=== PATIENT | male | born 1990 | race African-American/Black ===

== ENCOUNTER 2017-05-29 08:49 | Emergency (ER) | payer SELFPAY ==
--- NOTE | 2017-05-29 09:35 | PDOC ---
History of Present Illness - General Chief Complaint: Sore Throat Stated Complaint: FLU LIKE SYMPTOMS Time Seen by Provider: 05/29/17 09:33 History Source: Patient Exam Limitations: No Limitations - History of Present Illness Initial Comments: CHIEF COMPLAINT: 27 y/o male with no significant PMH c/o body aches, cough, fever, sore throat and runny nose x 3 days. 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 He states he has been taking dayquill and nyquill for the symptoms with little relief. He does not know if he's been exposed to the flu. He did not have the flu shot this year. Vital signs on arrival are temp of 99.7. REVIEW OF SYSTEMS: GENERAL/CONSTITUTIONAL: + fever/chills. +body aches. No weakness. No weight change. HEAD, EYES, EARS, NOSE AND THROAT: No change in vision. No ear pain or discharge. +sore throat and runny nose. CARDIOVASCULAR: No chest pain or shortness of breath. RESPIRATORY: +dry cough. No wheezing or hemoptysis. GASTROINTESTINAL: No abd pain, nausea, vomiting, diarrhea. GENITOURINARY: No dysuria, frequency, or change in urination. MUSCULOSKELETAL: No joint or muscle swelling or pain. No neck or back pain. SKIN: No rash or easy bruising. NEUROLOGIC: No headache, vertigo, loss of consciousness, or loss of sensation. PHYSICAL EXAM: GENERAL: The patient is awake, alert, and fully oriented, in no acute distress. He is non toxic appearing. HEAD: Normal with no signs of trauma. ENT: Pupils equal, round and reactive to light, extraocular movements intact, sclera anicteric, conjunctiva clear. Nasal congestion. Mild posterior pharyngeal erythema without tonsilar edema or exudate. Uvula midline. No cervical lymphadenopathy LUNGS: Clear to auscultation bilaterally. Normal excursion. No respiratory distress or use of accessory muscles. CV: RRR, S1/S2, no MRG. Cap refill < 2 sec. ABDOMEN: Soft, non-distended, non-tender even to deep palpation, no hepatomegaly or splenomegaly, no masses. EXTREMITIES: Normal range of motion, no edema. NEUROLOGICAL: Normal speech, normal gait. CN II-XII grossly intact. SKIN: Warm, dry, normal turgor, no rashes or lesions noted. Past History - Past Medical History Allergies/Adverse Reactions: Allergies Allergy/AdvReac Type Severity Reaction Status Date / Time No Known Allergies Allergy Verified 05/29/17 09:08 Home Medications: Ambulatory Orders NK [No Known Home Medication] 05/23/13 Anemia: No Asthma: No Cancer: No Cardiac Disorders: No CVA: No COPD: No CHF: No Dementia: No Diabetes: No GI Disorders: Yes (BILATERAL INGUINAL HERNIAS) Disorders: No HTN: No Hypercholesterolemia: No Liver Disease: No Seizures: No Thyroid Disease: No - Surgical History Abdominal Surgery: No Appendectomy: No Cardiac Surgery: No Cholecystectomy: No Lung Surgery: No Neurologic Surgery: No Orthopedic Surgery: No - Suicide/Smoking/Psychosocial Hx Smoking Status: No Smoking History: Never smoked Have you smoked in the past 12 months: No Number of Cigarettes Smoked Daily: 0 Information on smoking cessation initiated: No Hx Alcohol Use: No Drug/Substance Use Hx: No Substance Use Type: None Hx Substance Use Treatment: No Medical Decision Making - Medical Decision Making A/P: 27 y/o male with symptoms of the flu. Plan is as follows: 1. PO ibuprofen 2. Influenza Influenza A&B - negative Will diagnose with viral URI. Suggested supportive care measures. Provided work note. Instructed the patient to return to the ER with any worsening or concerning symptoms. The patient verbalizes understanding of all instructions, has no further questions and is awaiting discharge. *DC/Admit/Observation/Transfer Diagnosis at time of Disposition: URI (upper respiratory infection) Qualifiers: URI type: unspecified URI Qualified Code(s): J06.9 - Acute upper respiratory infection, unspecified - Discharge Dispostion Disposition: HOME Condition at time of disposition: Stable - Referrals - Patient Instructions Printed Discharge Instructions: DI for Viral Upper Respiratory Infection -- Adult Additional Instructions: Discharge Instructions: -You have a viral illness -Please stop taking nyquil and dayquill -Take 650mg of tylenol every 4 hours and 600mg of Ibuprofen every 6 hours until symptoms improve -Drink plenty of fluids -get lots of rest -Return to the ER with any worsening or concerning symptoms. - Post Discharge Activity Forms/Work/School Notes: Back to Work
[2017-05-29 09:45] VITALS: BP 140/92; PULSE 88; TEMP 99.7
[2017-05-29] MEDS ORDERED: IBUPROFEN 400 MG TABLET (FP) PO ONE ×2 (09:46)
== END 2017-05-29 10:33 | disposition home or self-care (01) ==
LOC: JER 08:49 → JERFT 08:49
DX: J06.9 Acute upper respiratory infection, unspecified (principal); B97.89 Other viral agents as the cause of diseases classified elsewhere
CPT/HCPCS: 87804; 99281-25

== ENCOUNTER 2019-03-13 19:19 | Emergency (ER) | payer OTHER ==
[2019-03-13] MEDS ORDERED: IBUPROFEN 600 MG TABLET (FP) PO ONE ×2 (19:32→19:47)
--- NOTE | 2019-03-13 19:32 | PDOC ---
Rapid Medical Evaluation Time Seen by Provider: 03/13/19 19:21 Medical Evaluation: Allergies Allergy/AdvReac Type Severity Reaction Status Date / Time No Known Allergies Allergy Verified 05/29/17 09:08 03/13/19 19:31 CC: ear infection- already taking amox PE: deferred Orders: motrin Patient will proceed to ER for further evaluation. Discharge Disposition - Diagnosis Earache on left - Referrals - Patient Instructions - Post Discharge Activity
[2019-03-13 19:42] VITALS: BP 126/79; PULSE 66; TEMP 98.2; BMI 27.1
[2019-03-13] MEDS ORDERED: ACETAMINOPHEN 500 MG TABLET (FP) PO ONE (19:42)
--- NOTE | 2019-03-13 19:44 | PDOC ---
History of Present Illness - General Chief Complaint: Ear Problem Stated Complaint: EAR PROBLEM Time Seen by Provider: 03/13/19 19:21 - History of Present Illness Initial Comments: 03/13/19 19:42 28-year-old male without comorbidities diagnosed with otitis media of the left ear 3 days ago into a 5-day course of amoxicillin he is on day 3 now without relief of pain. He is afebrile Past History - Past Medical History Allergies/Adverse Reactions: Allergies Allergy/AdvReac Type Severity Reaction Status Date / Time No Known Allergies Allergy Verified 03/13/19 19:35 Home Medications: Ambulatory Orders NK [No Known Home Medication] 05/23/13 Anemia: No Asthma: No Cancer: No Cardiac Disorders: No CVA: No COPD: No CHF: No Dementia: No Diabetes: No GI Disorders: Yes (BILATERAL INGUINAL HERNIAS) Disorders: No HTN: No Hypercholesterolemia: No Liver Disease: No Seizures: No Thyroid Disease: No - Surgical History Abdominal Surgery: No Appendectomy: No Cardiac Surgery: No Cholecystectomy: No Lung Surgery: No Neurologic Surgery: No Orthopedic Surgery: No - Psycho Social/Smoking Cessation Hx Smoking Status: No Smoking History: Never smoked Have you smoked in the past 12 months: No Number of Cigarettes Smoked Daily: 0 Information on smoking cessation initiated: No Hx Alcohol Use: No Drug/Substance Use Hx: No Substance Use Type: None Hx Substance Use Treatment: No Review of Systems - Review of Systems Constitutional: No: Fever HEENTM: Yes: Ear Pain *Physical Exam - Vital Signs Last Vital Signs Temp Pulse Resp BP Pulse Ox 98.2 F 66 17 126/79 100 03/13/19 19:33 03/13/19 19:33 03/13/19 19:33 03/13/19 19:33 03/13/19 19:33 - Physical Exam Comments: 03/13/19 19:43 GENERAL: The patient is awake, alert, and fully oriented, in no acute distress. HEAD: Normal with no signs of trauma. EYES: sclera anicteric, conjunctiva clear. ENT: Right ear canal and tympanic membrane normal left ear canal is normal tympanic membrane is erythemic and retracted EXTREMITIES: Normal range of motion, no edema. No clubbing or cyanosis. No cords, erythema, or tenderness. NEUROLOGICAL: Cranial nerves II through XII grossly intact. Normal speech, normal gait. PSYCH: Normal mood, normal affect. SKIN: Warm, Dry, normal turgor, no rashes or lesions noted. Medical Decision Making - Medical Decision Making 03/13/19 19:43 Advised patient to finish the Augmentin as prescribed for 5 days. Return to the emergency room should symptoms not resolved. He will also follow-up with his primary care doctor. Advised him on the use of Tylenol and Motrin for pain. Discharge - Discharge Information Problems reviewed: Yes Clinical Impression/Diagnosis: Earache on left, Otitis media Condition: Stable Disposition: HOME - Admission No - Follow up/Referral Referrals: Yamila Sanches MD [Primary Care Provider] - - Patient Discharge Instructions Additional Instructions: Continue the antibiotics as directed. Tylenol and Motrin as directed for pain. Return to the emergency room should symptoms go unresolved after you finish her antibiotics. Also follow-up with your primary care doctor in 1 to 2 days for further evaluation and treatment options. - Post Discharge Activity
[2019-03-13] MEDS ORDERED: ACETAMINOPHEN 325 MG TABLET (FP) ONE (19:47)
== END 2019-03-13 19:55 | disposition home or self-care (01) ==
LOC: JERFT 19:19
DX: H66.92 Otitis media, unspecified, left ear (principal)
CPT/HCPCS: 99281-25

== ENCOUNTER 2019-03-17 22:20 | Emergency (ER) | payer OTHER ==
[2019-03-17 22:26] VITALS: BP 110/70; PULSE 50; TEMP 97.7; BMI 26.7
== END 2019-03-18 01:00 | disposition left against medical advice (07) ==
LOC: JER 22:20
DX: Z53.21 Procedure and treatment not carried out due to patient leaving prior to being seen by health care provider (principal)
CPT/HCPCS: 99281-25